=== PATIENT | female | born 1990 | race African-American/Black ===

== ENCOUNTER 2020-03-10 18:24 | Emergency (ER) | payer MEDICAID ==
[~2020-03-10] VITALS: Ht 149.9 cm; Wt 68.0 kg
[2020-03-10 18:27] VITALS: Ht 149.9 cm; Wt 68.0 kg
[2020-03-10 20:55] VITALS: BP 118/74
== END 2020-03-10 20:55 | disposition home or self-care (01) ==
LOC: ED 18:24
DX: H65.93 Unspecified nonsuppurative otitis media, bilateral (principal); H93.13 Tinnitus, bilateral; Z90.710 Acquired absence of both cervix and uterus